=== PATIENT | male | born 1960 | race African-American/Black ===

== ENCOUNTER 2018-06-22 17:11 | Emergency (ER) | payer OTHER ==
[~2018-06-22] VITALS: Ht 167.6 cm; Wt 75.3 kg
[2018-06-22 17:54] LABS: ABSOLUTE NEUTROPHILS 12.3 thou/uL (1.4-8.2); BASOPHILS 0.3 % (0.0-2.0); EOSINOPHILS 0.4 % (0.0-3.0); HEMATOCRIT 37.3 % (42.0-52.0); HEMOGLOBIN 12.1 gm/dL (14.0-18.0); LYMPHOCYTES 5.6 % (24.0-44.0); MCHC 32.4 g/dL (28.0-37.0); MCV 83.2 fL (80.0-100.0); MONOCYTES 6.7 % (1.0-8.0); PLATELET COUNT 178 thou/uL (150-400); RBC 4.48 mil/uL (4.50-6.00); RDW 12.9 % (10.5-14.5); WBC 14.2 thou/uL (4.0-11.0)
[2018-06-22 18:02] LABS: CALCIUM 9.5 mg/dL (8.5-10.1); CREATININE 0.9 mg/dL (0.7-1.3); POTASSIUM 3.8 mmol/L (3.5-5.1)
[2018-06-22 18:08] LABS: ALBUMIN 3.8 g/dL (3.4-5.0); MAGNESIUM 1.8 mg/dL (1.8-2.4); TOTAL BILIRUBIN 0.8 mg/dL (<0.1-1.0); TOTAL PROTEIN 8.1 g/dL (6.4-8.2)
[2018-06-22] MEDS ORDERED: KEPPRA1000 MG PO (18:20)
[2018-06-22] MEDS ORDERED: COLACE100 MG PO (18:22)
[2018-06-22] MEDS ORDERED: PRENATAL PO (18:22)
[2018-06-22] MEDS ORDERED: TYLENOL325 MG PO (18:26)
[2018-06-22] MEDS ORDERED: MIRALAX17 GM PO (18:26)
[2018-06-22] MEDS ORDERED: FLEXERIL PO (18:28)
[2018-06-22 18:30] LABS: URINE BILIRUBIN NEGATIVE (Negative); URINE BLOOD NEGATIVE (Negative); URINE CLARITY CLEAR; URINE COLOR YELLOW; URINE GLUCOSE-RANDOM* NEGATIVE (Negative); URINE KETONES NEGATIVE (Negative); URINE LEUKOCYTES-REFLEX NEGATIVE (Negative); URINE NITRITE-REFLEX NEGATIVE (Negative); URINE PROTEIN (DIPSTICK) NEGATIVE (Negative); URINE UROBILINOGEN 0.2 E.U./dl (0.2-1.0)
[2018-06-22 18:41] LABS: AMP/METHAMP Negative (Negative); BARBITURATES Negative (Negative); BENZODIAZEPINES Negative (Negative); COCAINE Negative (Negative); METHADONE Negative (Negative); OPIATES Negative (Negative); PCP Negative (Negative)
[2018-06-22 20:11] VITALS: BP 109/63
== END 2018-06-22 20:13 ==
LOC: ER 17:11
PROVIDERS: Emergency Medicine
DX: G40.909 Epilepsy, unspecified, not intractable, without status epilepticus (principal); F17.210 Nicotine dependence, cigarettes, uncomplicated; Z88.0 Allergy status to penicillin

== ENCOUNTER 2018-10-05 05:49 | Emergency (ER) | payer OTHER ==
[~2018-10-05] VITALS: Ht 177.8 cm; Wt 109.3 kg
[~2018-10-05 05:49] MED LIST: COLACE100 MG PO; FLEXERIL PO; KEPPRA1000 MG PO; MIRALAX17 GM PO; PRENATAL PO; TYLENOL325 MG PO
[2018-10-05] MEDS ORDERED: TAMIFLU75 MG PO (06:19)
[2018-10-05 08:50] LABS: ABSOLUTE NEUTROPHILS 10.7 thou/uL (1.4-8.2); BASOPHILS 0.2 % (0.0-2.0); HEMOGLOBIN 11.6 gm/dL (14.0-18.0); LYMPHOCYTES 4.9 % (24.0-44.0); MCH 26.7 pg (26.0-34.0); MCV 80.8 fL (80.0-100.0); MONOCYTES 7.8 % (1.0-8.0); PLATELET COUNT 202 thou/uL (150-400); POLYS 87.1 % (36.0-66.0); RBC 4.32 mil/uL (4.50-6.00); RDW 12.6 % (10.5-14.5); WBC 12.3 thou/uL (4.0-11.0)
[2018-10-05 08:56] LABS: POTASSIUM 3.7 mmol/L (3.5-5.1)
[2018-10-05 09:01] LABS: URINE BILIRUBIN NEGATIVE (Negative); URINE BLOOD 1+ (Negative); URINE CLARITY CLEAR; URINE COLOR YELLOW; URINE GLUCOSE-RANDOM* TRACE (Negative); URINE KETONES NEGATIVE (Negative); URINE LEUKOCYTES-REFLEX NEGATIVE (Negative); URINE NITRITE-REFLEX NEGATIVE (Negative); URINE PROTEIN (DIPSTICK) NEGATIVE (Negative); URINE UROBILINOGEN 0.2 E.U./dl (0.2-1.0)
[2018-10-05 09:02] LABS: ALBUMIN 3.4 g/dL (3.4-5.0); TOTAL BILIRUBIN 0.7 mg/dL (<0.1-1.0); TOTAL PROTEIN 7.8 g/dL (6.4-8.2)
[2018-10-05 09:13] LABS: BACTERIA-REFLEX None Seen /HPF (None Seen); CASTS None Seen /LPF (None Seen); CRYSTALS None Seen /LPF (None Seen); SQUAMOUS 0-3 Few /LPF (0-3); URINE RBC 0-2 Rare /HPF (0-2); URINE WBC-REFLEX 0-5 Rare /HPF (0-5)
[2018-10-05 11:16] VITALS: BP 111/69
== END 2018-10-05 18:50 | disposition home or self-care (01) ==
LOC: ER 05:49
PROVIDERS: Emergency Medicine
DX: G40.909 Epilepsy, unspecified, not intractable, without status epilepticus (principal); R50.9 Fever, unspecified; F25.9 Schizoaffective disorder, unspecified; Z87.820 Personal history of traumatic brain injury; I10 Essential (primary) hypertension; E78.5 Hyperlipidemia, unspecified; F17.210 Nicotine dependence, cigarettes, uncomplicated; Z88.0 Allergy status to penicillin

== ENCOUNTER 2019-07-20 10:31 | Emergency (ER) | payer OTHER ==
[~2019-07-20] VITALS: Ht 175.3 cm; Wt 95.7 kg
[~2019-07-20 10:31] MED LIST changes: +TAMIFLU75 MG PO
[2019-07-20] MEDS ORDERED: METFORMIN HCL500 M3 PO (11:43)
[2019-07-20] MEDS ORDERED: METFORMIN HCL500 MG PO (11:43)
[2019-07-20] MEDS ORDERED: VIMPAT100 MG PO (11:44)
[2019-07-20 12:29] LABS: CALCIUM 9.5 mg/dL (8.5-10.1)
[2019-07-20 12:35] LABS: ALBUMIN 3.8 g/dL (3.4-5.0); TOTAL BILIRUBIN 0.5 mg/dL (<0.1-1.0)
[2019-07-20 12:36] LABS: URINE BILIRUBIN NEGATIVE (Negative); URINE BLOOD NEGATIVE (Negative); URINE CLARITY CLEAR; URINE COLOR YELLOW; URINE GLUCOSE-RANDOM* NEGATIVE (Negative); URINE KETONES NEGATIVE (Negative); URINE LEUKOCYTES-REFLEX NEGATIVE (Negative); URINE NITRITE-REFLEX NEGATIVE (Negative); URINE PROTEIN (DIPSTICK) TRACE (Negative); URINE SPECIFIC GRAVITY >= 1.030 (1.005-1.035); URINE UROBILINOGEN 0.2 E.U./dl (0.2-1.0)
[2019-07-20 12:44] LABS: ABSOLUTE NEUTROPHILS 5.1 thou/uL (1.4-8.2); BASOPHILS 0.6 % (0.0-2.0); EOSINOPHILS 0.2 % (0.0-3.0); HEMATOCRIT 34.2 % (42.0-52.0); HEMOGLOBIN 11.1 gm/dL (14.0-18.0); LYMPHOCYTES 18.5 % (24.0-44.0); MCH 27.1 pg (26.0-34.0); MCHC 32.5 g/dL (28.0-37.0); MCV 83.5 fL (80.0-100.0); MONOCYTES 8.3 % (1.0-8.0); PLATELET COUNT 195 thou/uL (150-400); POLYS 72.4 % (36.0-66.0); RBC 4.09 mil/uL (4.50-6.00); RDW 13.2 % (10.5-14.5)
[2019-07-20 15:04] VITALS: BP 111/82
== END 2019-07-20 15:04 | disposition home or self-care (01) ==
LOC: ER 10:31
PROVIDERS: Physician Assistant
DX: F91.1 Conduct disorder, childhood-onset type (principal); R41.82 Altered mental status, unspecified; I10 Essential (primary) hypertension; E78.5 Hyperlipidemia, unspecified; G40.909 Epilepsy, unspecified, not intractable, without status epilepticus; G93.40 Encephalopathy, unspecified; F17.210 Nicotine dependence, cigarettes, uncomplicated; Z86.73 Personal history of transient ischemic attack (TIA), and cerebral infarction without residual deficits; Z79.899 Other long term (current) drug therapy; Z88.0 Allergy status to penicillin; Z71.1 Person with feared health complaint in whom no diagnosis is made